=== PATIENT | male | born 1965 | race African-American/Black ===

== ENCOUNTER 2023-05-12 17:38 | Emergency (ER) | payer BC ==
[~2023-05-12] VITALS: Ht 180.3 cm; Wt 107.0 kg
[2023-05-12 17:45] VITALS: BP 168/111; PULSE 79; RESP 18; TEMP 97.3; O2SAT 100
[2023-05-12 19:09] LABS: BASOPHILS % 1.5 % (0.0-2.0); EOSINOPHILS % 2.6 % (0.0-5.0); HEMATOCRIT. 36.6 % (42.0-52.0); HEMOGLOBIN. 12.4 g/dL (14.0-18.0); LYMPHOCYTES % 25.1 % (20.0-50.0); MEAN CORPUSCULAR VOLUME 85.4 fL (80.0-94.0); MEAN PLATELET VOLUME 7.7 fl (7.4-10.4); MONOCYTES % 7.5 % (2.0-8.0); NEUTROPHILS % 63.3 % (40.0-76.0); PLATELET 419 x1000/uL (130-400); RED BLOOD CELL COUNT 4.29 mill/uL (4.7-6.1); RED CELL DISTRIBUTION WIDTH 15.3 % (11.6-14.6); WHITE BLOOD COUNT 9.8 x1000/uL (4.5-11.0)
[2023-05-12 19:20] LABS: PROTHROMBIN TIME 10.7 sec (9.6-11.0)
[2023-05-12 19:22] LABS: ALANINE AMINOTRANSFERASE 13 IU/L (10-49); ALBUMIN 4.8 g/dL (3.2-4.8); ASPARTATE AMINOTRANSFERASE 16 IU/L (<34); BILIRUBIN TOTAL 0.3 mg/dL (0.1-1.0); CARBON DIOXIDE 26 mEq/L (21-32); CHLORIDE 105 mEq/L (98-107); CREATININE 1.1 mg/dL (0.6-1.3); GLUCOSE 94 mg/dL (70-105); POTASSIUM 4.2 mEq/L (3.5-5.1); PROTEIN TOTAL 7.8 g/dL (6.0-8.3); SODIUM 138 mEq/L (136-145); UREA NITROGEN BLOOD 22 mg/dL (9-23)
== END 2023-05-12 22:03 | disposition home or self-care (01) ==
LOC: ER 17:38
DX: S40.022A Contusion of left upper arm, initial encounter (principal); I10 Essential (primary) hypertension; F14.10 Cocaine abuse, uncomplicated; X58.XXXA Exposure to other specified factors, initial encounter; Y93.89 Activity, other specified; Y92.89 Other specified places as the place of occurrence of the external cause; Y99.8 Other external cause status
CPT/HCPCS: 36415; 80053; 85025; 93971; 99284

== ENCOUNTER → 2023-05-12 | Emergency (ER) | payer BC | LOC: ER 20:11 | DX: R68.89 Other general symptoms and signs (principal); Z53.21 Procedure and treatment not carried out due to patient leaving prior to being seen by health care provider | CPT/HCPCS: 99281 ==

== ENCOUNTER 2024-01-30 13:22 | Emergency (ER) | payer OTHER, BC ==
[~2024-01-30] VITALS: Ht 182.9 cm; Wt 90.0 kg
[2024-01-30 13:26] VITALS: O2SAT 98
[2024-01-30] MEDS: LIDOCAINE HCL/PF 1% 10 MG/ML 5ML VIAL INFIL ONE (14:00)
[2024-01-30] MEDS ORDERED: BACITRACIN ZINC OINT UDPKT TOP ONE (14:00)
[2024-01-30 14:17] LABS: BASOPHILS % 0.4 % (0.0-2.0); EOSINOPHILS % 1.6 % (0.0-5.0); HEMATOCRIT. 41.6 % (42.0-52.0); HEMOGLOBIN. 13.5 g/dL (14.0-18.0); LYMPHOCYTES % 9.9 % (20.0-50.0); MEAN CORPUSCULAR HEMOGLOBIN 27.7 pg (28.0-32.0); MEAN CORPUSCULAR HGB CONC 32.3 g/dL (31.0-37.0); MEAN CORPUSCULAR VOLUME 85.6 fL (80.0-94.0); MEAN PLATELET VOLUME 8.2 fl (7.4-10.4); MONOCYTES % 6.1 % (2.0-8.0); PLATELET 383 x1000/uL (130-400); RED BLOOD CELL COUNT 4.87 mill/uL (4.7-6.1); RED CELL DISTRIBUTION WIDTH 16.5 % (11.6-14.6); WHITE BLOOD COUNT 17.5 x1000/uL (4.5-11.0)
[2024-01-30 14:20] LABS: CHLORIDE 106 mEq/L (98-107); POTASSIUM 4.4 mEq/L (3.5-5.1); SODIUM 140 mEq/L (136-145)
[2024-01-30 14:21] LABS: CALCIUM 9.4 mg/dL (8.7-10.4); CARBON DIOXIDE 23 mEq/L (21-32)
[2024-01-30 14:26] LABS: CREATININE 1.2 mg/dL (0.6-1.3); GLUCOSE 110 mg/dL (70-105); UREA NITROGEN BLOOD 17 mg/dL (9-23)
[2024-01-30 14:29] LABS: PARTIAL THROMBOPLASTIN TIME 22.6 sec (23.4-31.0); PROTHROMBIN TIME 10.8 sec (9.6-11.0)
[2024-01-30 14:39] LABS: ETHANOL BLOOD < 10 mg/dL (<10)
[2024-01-30] MEDS: TETANUS, DIPHTHERIA, PERTUSSIS VAC/PF 0.5ML (>10YR OLD) IM ONE (14:39)
[2024-01-30] MEDS: HYDRALAZINE 20MG/ML VIAL IV ONE (14:39)
[2024-01-30] MEDS: ONDANSETRON HCL 4MG/2ML INJ IV ONE (14:39)
[2024-01-30] MEDS: MORPHINE SULFATE 4 MG/ML INJ (FOR IV/IM USE) IV ONE (14:40)
[2024-01-30] MEDS: HYDROCODONE/ACETAMINOPHEN 10/325MG TABLET PO ONE (15:16)
[2024-01-30] MEDS ORDERED: IBUP-2029 MT (16:45)
[2024-01-30] MEDS ORDERED: CEFAZOLIN 1000MG PREMIX 50 ML IV ONE (17:00)
[2024-01-30 17:51] VITALS: BP 171/94; PULSE 84; RESP 18; TEMP 36.55848; O2SAT 99
== END 2024-01-30 15:52 ==
LOC: ER 13:22
DX: S52.202A Unspecified fracture of shaft of left ulna, initial encounter for closed fracture (principal); S01.01XA Laceration without foreign body of scalp, initial encounter; I10 Essential (primary) hypertension; R41.82 Altered mental status, unspecified; Y08.89XA Assault by other specified means, initial encounter; Y93.89 Activity, other specified; Y92.89 Other specified places as the place of occurrence of the external cause; Y99.8 Other external cause status
CPT/HCPCS: 80048; 80320; 85025; 85610; 85730; 36415; 73090; 70450; 70486; 72125; 90715; 12001; 90471; 96374; 96375; 99285; J0360; J3490; J2405; J2270; Z7610 ×3; A4565; J0690; G0480